=== PATIENT | female | born 1955 | race Caucasian/White ===

== ENCOUNTER 2025-02-28 16:46 | Outpatient (CLI) | payer MEDICARE, SELFPAY ==
[2025-03-03 09:30] LABS: Lyme Ab w Rflx to Lyme Confirm Negative (Negative)
== END 2025-02-28 16:47 | disposition home or self-care (01) ==
LOC: LBO 16:47
PROVIDERS: Visit Provider Nurse Practitioner Family
DX: G45.4 Transient global amnesia (principal)
CPT/HCPCS: 36415; 86618